=== PATIENT | female | born 1990 | race Caucasian/White ===

== ENCOUNTER 2016-11-15 13:12 | Emergency (ER) | payer MEDICAID ==
[2016-11-15 14:19] LABS: RBC URINE 1 /hpf (0-3); URINE BACTERIA RARE (<OCC); URINE BILIRUBIN NEGATIVE (NEGATIVE); URINE COLOR Yellow (YELLOW); URINE GLUCOSE (UA) NORMAL (Normal); URINE KETONE NEGATIVE (NEGATIVE); URINE LEUKOCYTE ESTERASE TRACE Leu/uL (Negative); URINE PROTEIN 3+ mg/dL (NEGATIVE); URINE UROBILINOGEN NORMAL mg/dL (0.2-1.0); WBC URINE 7 /hpf (0-5)
--- NOTE | 2016-11-15 14:20 | C.PDOC ---
History Of Present Illness 26 y/o female who presents to the ED complaining of nausea, abdominal distension , and 1 episode of vomiting today. LMP was 09/2016 and she states she is late. Patient has not taken home test. She denies fever, dysuria/hematuria , vaginal discharge, diarrhea. PMD: Dr. Piper Time Seen by Provider: 11/15/16 13:44 Chief Complaint (Nursing): Abdominal Pain History Per: Patient History/Exam Limitations: no limitations Onset/Duration Of Symptoms: Days (x 1) Current Symptoms Are (Timing): Still Present Severity: Mild Past Medical History Reviewed: Historical Data, Nursing Documentation, Vital Signs Vital Signs: Last Vital Signs Temp 98.7 F 11/15/16 15:45 Pulse 73 11/15/16 15:45 Resp 16 11/15/16 15:45 BP 148/79 11/15/16 15:45 Pulse Ox 100 11/19/16 13:43 - Medical History PMH: Bipolar Disorder, Paranoia, Schizophrenia Family History: States: No Known Family Hx - Social History Hx Tobacco Use: No Hx Alcohol Use: No Hx Substance Use: No - Immunization History Hx Tetanus Toxoid Vaccination: No Hx Influenza Vaccination: No Hx Pneumococcal Vaccination: No Review Of Systems Except As Marked, All Systems Reviewed And Found Negative. Constitutional: Negative for: Fever Cardiovascular: Negative for: Chest Pain, Palpitations Respiratory: Negative for: Shortness of Breath Gastrointestinal: Positive for: Nausea, Vomiting, Other (Distension). Negative for: Diarrhea Genitourinary: Negative for: Dysuria, Hematuria, Vaginal Discharge Physical Exam - Physical Exam Appears: Well, Non-toxic, No Acute Distress, Other (morbidly obese ) Skin: Normal Color, Warm, Dry Oral Mucosa: Moist Neck: Normal Cardiovascular: Rhythm Regular Respiratory: Normal Breath Sounds, No Rales, No Rhonchi, No Wheezing Gastrointestinal/Abdominal: Normal Exam, Bowel Sounds, Soft, No Tenderness Back: Normal Inspection, No CVA Tenderness Neurological/Psych: Oriented x3 Gait: Steady ED Course And Treatment O2 Sat by Pulse Oximetry: 100 (RA) Pulse Ox Interpretation: Normal Progress Note: 14:01. Initial Plan: UA and Upreg ordered and reviewed. Pending reevaluation and disposition. Reevaluation Time: 15:15 Reassessment Condition: Improved (Patient reassessed, is resting comfortably, in no current pain or distress. Abdomen is soft and nontender on exam. Upreg ( -), UA shows possile UTI. Patient given PO Ciprofloxacin and intructed to follow up with [facility] in 1-2 days. She understands she should return to ED if symptoms worsen.) Disposition Counseled Patient/Family Regarding: Studies Performed, Diagnosis, Need For Followup, Rx Given - Disposition Referrals: [facility] [Outside] Disposition: HOME/ ROUTINE Disposition Time: 15:20 Condition: STABLE Additional Instructions: FOLLOW UP WITH YOUR DOCTOR IN 1-2 DAYS USE ANTIBIOTIC UNTIL FINISHED RETURN TO ER IF SYMPTOMS WORSEN Prescriptions: Ciprofloxacin [Cipro] 1 tab PO BID #14 tab Instructions: Urinary Tract Infection in Women (ED) Forms: [employer] (Zambian) Print Language: NAMIBIAN - POA Present On Arrival: None - Clinical Impression Clinical Impression: UTI (urinary tract infection) - Scribe Statement The provider has reviewed the documentation as recorded by the Scribe Rosemary Greenwood All medical record entries made by the Scribe were at my direction and personally dictated by me. I have reviewed the chart and agree that the record accurately reflects my personal performance of the history, physical exam, medical decision making, and the department course for this patient. I have also personally directed, reviewed, and agree with the discharge instructions and disposition.
[2016-11-15 14:21] LABS: URINE BLOOD TRACE (NEGATIVE)
[2016-11-15 15:45] VITALS: BP 148/79; PULSE 73; RESP 16; TEMP 98.7
[2016-11-19 13:41] VITALS: O2SAT 100
== END 2016-11-15 15:46 | disposition home or self-care (01) ==
LOC: C.ER 13:12
DX: N39.0 Urinary tract infection, site not specified (principal)

== ENCOUNTER 2016-11-30 18:24 | Emergency (ER) | payer MEDICAID ==
[2016-11-30 18:39] VITALS: O2SAT 99
[2016-11-30 19:50] LABS: BASO # 0.1 K/uL (0.0-0.2); BASO % 0.6 % (0.0-2.0); EOS # 0.2 K/uL (0.0-0.7); EOS % 1.3 % (0.0-4.0); HEMATOCRIT 29.8 % (34.0-47.0); LYMPH # 4.3 K/uL (1.0-4.3); LYMPH % 37.8 % (20.0-40.0); MEAN CELL VOLUME 65.7 fL (81.0-99.0); MEAN CORPUSCULAR HEMOGLOBIN 19.7 pg (27.0-31.0); MEAN PLATELET VOLUME 8.5 fL (7.2-11.7); MONO # 0.4 K/uL (0.0-0.8); MONO % 3.4 % (0.0-10.0); RED CELL DISTRIBUTION WIDTH 18.7 % (11.5-14.5); WHITE BLOOD COUNT 11.3 K/uL (4.8-10.8)
[2016-11-30 19:58] LABS: CHLORIDE 105 mmol/L (98-107)
[2016-11-30 19:59] LABS: POTASSIUM 4.1 mmol/L (3.6-5.2); SODIUM 140 mmol/L (132-148)
[2016-11-30 20:01] LABS: ALB/GLOB RATIO 1.2 (1.0-2.1); AST/SGOT 25 U/L (14-36); BILIRUBIN,TOTAL 0.4 mg/dL (0.2-1.3); BLOOD UREA NITROGEN 15 mg/dL (7-17); CARBON DIOXIDE 25 mmol/L (22-30); GFR AFRICAN-AMERICAN > 60; TOTAL PROTEIN 7.3 g/dL (6.3-8.3)
[2016-11-30 20:02] LABS: ALKALINE PHOSPHATASE 60 U/L (38-126); ALT/SGPT 41 U/L (9-52); GLUCOSE,RANDOM 92 mg/dL (65-105)
--- NOTE | 2016-11-30 20:11 | C.PDOC ---
History Of Present Illness 26 y/o female presents to ED with complaints of left upper abdominal pain and multiple daily episode of watery diarrhea since arriving from [facility] x1 month ago. Patient states symptoms are constant everyday and worsen when eating spicy food. Patient denies fever, chills, nausea, vomiting, rash or any other complaints at this time. Time Seen by Provider: 11/30/16 19:29 Chief Complaint (Nursing): Abdominal Pain History Per: Patient History/Exam Limitations: no limitations Onset/Duration Of Symptoms: Days Current Symptoms Are (Timing): Still Present Past Medical History Reviewed: Historical Data, Nursing Documentation, Vital Signs Vital Signs: Last Vital Signs Temp 97.4 F L 11/30/16 18:39 Pulse 20 L 11/30/16 18:39 Resp 18 11/30/16 18:39 BP 141/104 H 11/30/16 18:39 Pulse Ox 99 11/30/16 20:39 - Medical History PMH: Bipolar Disorder, Paranoia, Schizophrenia Surgical History: No Surg Hx Family History: States: No Known Family Hx - Social History Hx Tobacco Use: No Hx Alcohol Use: No Hx Substance Use: No - Immunization History Hx Tetanus Toxoid Vaccination: No Hx Influenza Vaccination: No Hx Pneumococcal Vaccination: No Review Of Systems Constitutional: Negative for: Fever, Chills Gastrointestinal: Positive for: Abdominal Pain, Diarrhea. Negative for: Nausea , Vomiting Genitourinary: Negative for: Dysuria, Frequency Musculoskeletal: Negative for: Back Pain Skin: Negative for: Rash Physical Exam - Physical Exam Appears: Non-toxic, No Acute Distress Skin: Normal Color, Warm, Dry, No Rash Head: Atraumatic Eye(s): bilateral: PERRL, EOMI Nose: No Epistaxis Oral Mucosa: Moist Neck: Normal ROM, Supple Cardiovascular: Rhythm Regular Respiratory: No Decreased Breath Sounds, No Accessory Muscle Use, No Rales, No Rhonchi, No Wheezing Gastrointestinal/Abdominal: Tenderness (LUQ ), No Guarding, No Rebound Neurological/Psych: Oriented x3, Normal Motor, Normal Sensation, Other (no focal deficits ) ED Course And Treatment - Laboratory Results Result Diagrams: 11/30/16 19:55 11/30/16 20:00 O2 Sat by Pulse Oximetry: 99 (RA) Pulse Ox Interpretation: Normal Medical Decision Making Medical Decision Makinpm pt hungry requesting to eat. she appears well in no distress. exam benign. I disc results, plan for f/u, and rtr. Disposition - Disposition Referrals: [facility] at [facility] [Outside] Disposition: HOME/ ROUTINE Disposition Time: 21:07 Condition: GOOD Additional Instructions: Please follow up with your doctor. Return to the ER for any worsening symptoms or for any other concerns. Prescriptions: Famotidine [Heartburn Prevention] 10 mg PO DAILY #14 tablet Famotidine [Pepcid] 20 mg PO DAILY #14 tab Instructions: Diet for Ulcers and Gastritis (GEN) Forms: General Discharge Instructions, [facility] (Setswana) - Clinical Impression Clinical Impression: Abdominal pain - Scribe Statement The provider has reviewed the documentation as recorded by the Scribann Ching All medical record entries made by the Martinaibann were at my direction and personally dictated by me. I have reviewed the chart and agree that the record accurately reflects my personal performance of the history, physical exam, medical decision making, and the department course for this patient. I have also personally directed, reviewed, and agree with the discharge instructions and disposition.
[2016-11-30] MEDS ORDERED: Aluminum Hydroxide/Magnesium Hydroxide Susp (30 mL) PO STA (20:31)
[2016-11-30] MEDS ORDERED: Aluminum Hydroxide/Magnesium Hydroxide Susp (30 mL) ONE (20:40)
[2016-11-30 20:48] LABS: RBC URINE 5 /hpf (0-3); URINE BACTERIA RARE (<OCC); URINE BILIRUBIN NEGATIVE (NEGATIVE); URINE BLOOD NEGATIVE (NEGATIVE); URINE COLOR Yellow (YELLOW); URINE GLUCOSE (UA) NORMAL (Normal); URINE KETONE NEGATIVE (NEGATIVE); URINE LEUKOCYTE ESTERASE 2+ Leu/uL (Negative); URINE PROTEIN 2+ mg/dL (NEGATIVE); URINE UROBILINOGEN NORMAL mg/dL (0.2-1.0); WBC URINE 26 /hpf (0-5)
[2016-11-30 21:22] VITALS: BP 110/74; PULSE 78; RESP 20; TEMP 97.9
== END 2016-11-30 21:21 | disposition home or self-care (01) ==
LOC: C.ER 18:24
DX: R10.12 Left upper quadrant pain (principal)

== ENCOUNTER 2017-11-02 16:36 | Emergency (ER) | payer MEDICAID ==
[2017-11-02] MEDS ORDERED: Sodium Chloride 0.9% 1,000 ML IV ONE (17:08)
[2017-11-02 17:31] LABS: BASO % 0.4 % (0.0-2.0); EOS # 0.1 K/uL (0.0-0.7); EOS % 1.1 % (0.0-4.0); HEMOGLOBIN 8.6 g/dL (11.0-16.0); LYMPH # 3.9 K/uL (1.0-4.3); LYMPH % 32.7 % (20.0-40.0); MEAN CELL VOLUME 62.4 fL (81.0-99.0); MEAN CORPUSCULAR HEMOGLOBIN 19.3 pg (27.0-31.0); MEAN PLATELET VOLUME 8.8 fL (7.2-11.7); MONO # 0.5 K/uL (0.0-0.8); MONO % 4.1 % (0.0-10.0); NEUT # 7.5 K/uL (1.8-7.0); NEUT % 61.7 % (50.0-75.0); NRBC % 0.1 % (0.0-2.0); RBC 4.44 Mil/uL (3.80-5.20); RED CELL DISTRIBUTION WIDTH 20.1 % (11.5-14.5); WHITE BLOOD COUNT 12.1 K/uL (4.8-10.8)
[2017-11-02 17:35] LABS: SQUAMOUS EPITHIAL 2 /hpf (0-5); URINE BILIRUBIN NEGATIVE (NEGATIVE); URINE BLOOD NEGATIVE (NEGATIVE); URINE CLARITY Clear (Clear); URINE COLOR Straw (YELLOW); URINE GLUCOSE (UA) NORMAL (Normal); URINE LEUKOCYTE ESTERASE NEG Leu/uL (Negative); URINE PROTEIN 2+ mg/dL (NEGATIVE); URINE UROBILINOGEN NORMAL mg/dL (0.2-1.0)
[2017-11-02] MEDS ORDERED: Sodium Chloride 0.9% 1,000 ML ONE (17:46)
--- NOTE | 2017-11-02 17:53 | C.PDOC ---
History Of Present Illness 26-year-old female, PMHx includes bipolar disorder and schizoeffective disorder , presents to the emergency department with complaints of right upper quadrant and epigastric abdominal pain radiating to back, associated with belching, which started after eating Maori food yesterday. States symptoms persisted this morning, and worsened in the afternoon, prompting visit. No fever, diarrhea , or any other associated symptoms. Pt states she has not been taking her psych meds because she is trying to get . No other complaints at this time. Time Seen by Provider: 11/02/17 17:03 Chief Complaint (Nursing): Abdominal Pain History Per: Patient History/Exam Limitations: no limitations Past Medical History Reviewed: Historical Data, Nursing Documentation, Vital Signs Vital Signs: Last Vital Signs Temp 98.9 F 11/02/17 18:35 Pulse 72 11/02/17 18:35 Resp 20 11/02/17 18:35 BP 131/83 11/02/17 18:35 Pulse Ox 99 11/02/17 18:35 - Medical History PMH: Bipolar Disorder, Paranoia, Schizophrenia Family History: States: No Known Family Hx - Social History Hx Tobacco Use: No Hx Alcohol Use: No Hx Substance Use: No - Immunization History Hx Tetanus Toxoid Vaccination: No Hx Influenza Vaccination: No Hx Pneumococcal Vaccination: No Review Of Systems Constitutional: Negative for: Fever Cardiovascular: Negative for: Chest Pain Respiratory: Negative for: Shortness of Breath Gastrointestinal: Positive for: Nausea, Abdominal Pain Physical Exam - Physical Exam Appears: Non-toxic, No Acute Distress Skin: Normal Color, Warm, Dry, No Rash Head: Atraumatic, Normacephalic Eye(s): bilateral: Normal Inspection, PERRL, EOMI Nose: Normal Neck: Normal ROM Chest: Symmetrical Cardiovascular: Rhythm Regular, No Murmur Respiratory: Normal Breath Sounds, No Accessory Muscle Use Gastrointestinal/Abdominal: Soft, Tenderness (RUQ, epigastric), No Distention, No Guarding, No Rebound Extremity: Normal ROM, No Deformity Neurological/Psych: Oriented x3, Normal Speech ED Course And Treatment - Laboratory Results Result Diagrams: 11/02/17 17:28 11/02/17 17:28 Lab Interpretation: No Acute Changes O2 Sat by Pulse Oximetry: 98 Pulse Ox Interpretation: Normal (RA) - CT Scan/US Abdominal ultrasound Other Rad Studies (CT/US): Read By Radiologist, Radiology Report Reviewed CT/US Interpretation: Accession No. : [id number]. Patient Name / ID : ISAIAS TAYO / [id number]. Exam Date : 11/02/2017 18:10:56 ( Approved ). Study Comment : Sex / Age : F / 26Y. Creator : Marilu Rosenthal MD. Dictator : Marilu Rosenthal MD. Elementary School Tutor : Keyboard Instrument Tuner : Marilu Rosenthal MD. Approver2 : Report Date : 11/02/2017 18:38:45. My Comment : . Date of service: 11/02/2017. HISTORY: abd pain. COMPARISON: None. TECHNIQUE: Sonographic evaluation of the abdomen. FINDINGS: LIVER: Measures 18.2 cm. Heterogeneous increased echogenicity of the liver parenchyma. No mass. No intrahepatic bile duct dilatation. GALLBLADDER: Unremarkable. No gallstones. COMMON BILE DUCT: Measures 4.6 mm. No stones. No dilatation. PANCREAS: Unremarkable as visualized. No mass. No ductal dilatation. RIGHT KIDNEY: Measures 12.5 x 4.5 x 5.6cm. Normal echogenicity. No calculus, mass, or hydronephrosis. LEFT KIDNEY: Measures 11.7 x 5.5 x 4.9cm. Normal echogenicity. No calculus, mass, or hydronephrosis. SPLEEN: Normal in size and contour. No mass. AORTA: No aneurysmal dilatation. IVC: Unremarkable. OTHER FINDINGS: None. IMPRESSION: Mild hepatomegaly with diffuse increased echogenicity suggestive of hepatic steatosis. No evidence of cholelithiasis or cholecystitis. Reevaluation Time: 19:32 Reassessment Condition: Improved Disposition Counseled Patient/Family Regarding: Studies Performed, Diagnosis, Need For Followup, Rx Given - Disposition Referrals: Malika Oliveira MD [Staff Provider] - Disposition: HOME/ ROUTINE Disposition Time: 19:34 Condition: IMPROVED Prescriptions: Pantoprazole Sodium [Protonix] 40 mg PO DAILY #14 ect Instructions: Acute Abdomen (Belly Pain), Adult (DC) Forms: [facility] (Tamazight) - Clinical Impression Clinical Impression: Abdominal pain - Scribe Statement The provider has reviewed the documentation as recorded by the Scribe (Aixa Shannon) All medical record entries made by the Scribe were at my direction and personally dictated by me. I have reviewed the chart and agree that the record accurately reflects my personal performance of the history, physical exam, medical decision making, and the department course for this patient. I have also personally directed, reviewed, and agree with the discharge instructions and disposition.
[2017-11-02 17:56] LABS: ALB/GLOB RATIO 1.2 (1.0-2.1); ALBUMIN 4.1 g/dL (3.5-5.0); ALT/SGPT 26 U/L (9-52); AST/SGOT 16 U/L (14-36); BLOOD UREA NITROGEN 14 mg/dL (7-17); CALCIUM 9.5 mg/dl (8.6-10.4); GFR AFRICAN-AMERICAN > 60; GFR NON-AFRICAN AMERICAN > 60; LIPASE 67 U/L (23-300)
[2017-11-02 18:14] LABS: HCG,QUALITATIVE URINE NEGATIVE (NEGATIVE)
--- NOTE | 2017-11-02 18:40 | US ---
Date of service: 11/02/2017 HISTORY: abd pain COMPARISON: None. TECHNIQUE: Sonographic evaluation of the abdomen. FINDINGS: LIVER: Measures 18.2 cm. Heterogeneous increased echogenicity of the liver parenchyma. No mass. No intrahepatic bile duct dilatation. GALLBLADDER: Unremarkable. No gallstones. COMMON BILE DUCT: Measures 4.6 mm. No stones. No dilatation. PANCREAS: Unremarkable as visualized. No mass. No ductal dilatation. RIGHT KIDNEY: Measures 12.5 x 4.5 x 5.6cm. Normal echogenicity. No calculus, mass, or hydronephrosis. LEFT KIDNEY: Measures 11.7 x 5.5 x 4.9cm. Normal echogenicity. No calculus, mass, or hydronephrosis. SPLEEN: Normal in size and contour. No mass. AORTA: No aneurysmal dilatation. IVC: Unremarkable. OTHER FINDINGS: None. IMPRESSION: Mild hepatomegaly with diffuse increased echogenicity suggestive of hepatic steatosis. No evidence of cholelithiasis or cholecystitis.
[2017-11-02 18:45] VITALS: BP 131/83; PULSE 72; RESP 20; TEMP 98.9
[2017-11-02 19:34] VITALS: O2SAT 98
== END 2017-11-02 19:44 | disposition home or self-care (01) ==
LOC: C.ER 16:36
DX: R10.9 Unspecified abdominal pain (principal)
CPT/HCPCS: 76700; 80053; 81001; 83690; 84703; 85025; 96361; 96374; 99284; J2405; J7030

== ENCOUNTER 2018-08-13 01:06 | Inpatient (IN) | payer MEDICAID ==
--- NOTE | 2018-08-13 01:47 | C.PDOC ---
History Of Present Illness 27 year old female brought to ED by family for angry outbursts and bizarre behavior that occurred today. Patient has been acting out and threatening family members. Patient has a psychiatric history and been non-compliant with medica tions, as per family. Patient denies homicidal and suicidal ideation. Time Seen by Provider: 08/13/18 01:46 Chief Complaint (Nursing): Psychiatric Evaluation History Per: Patient, Family History/Exam Limitations: no limitations Onset/Duration Of Symptoms: Days (1) Current Symptoms Are (Timing): Still Present Suicide/Self Injury Attempted (Context): None Modifying Factor(s): None Associated Symptoms: Anger, Agitation. denies: Suicidal Thoughts, Suicidal Plan Involuntary Hold By: None Additional History Per: Family Past Medical History Reviewed: Historical Data, Nursing Documentation, Vital Signs Vital Signs: Last Vital Signs Temp 99.3 F 08/13/18 01:22 Pulse 136 H 08/13/18 01:22 Resp 20 08/13/18 01:22 BP 184/111 H 08/13/18 01:22 Pulse Ox 99 08/13/18 01:22 Primary Care Provider: Carlos Arboleda - Medical History PMH: Bipolar Disorder, Paranoia, Schizophrenia Denies: Diabetes, Hepatitis, HIV, HTN, Seizures, Sexually Transmitted Disease Surgical History: No Surg Hx Family History: States: Unknown Family Hx - Social History Hx Tobacco Use: No Hx Alcohol Use: No Hx Substance Use: No - Immunization History Hx Tetanus Toxoid Vaccination: No Hx Influenza Vaccination: No Hx Pneumococcal Vaccination: No Review Of Systems Psych: Negative for: Suicidal ideation, Other (homicidal ideation) Physical Exam - Physical Exam Appears: Non-toxic, No Acute Distress Skin: Normal Color, Warm, Dry Head: Atraumatic, Normacephalic Eye(s): bilateral: Normal Inspection Oral Mucosa: Moist Neck: Trachea Midline, Supple Chest: Symmetrical Cardiovascular: Rhythm Regular Respiratory: No Rales, No Rhonchi, No Wheezing Gastrointestinal/Abdominal: Soft, No Tenderness, No Distention, No Guarding, No Rebound Extremity: Capillary Refill (<2 seconds) Extremity: Bilateral: Normal Color And Temperature Pulses: Left Dorsalis Pedis: Normal, Right Dorsalis Pedis: Normal Neurological/Psych: Oriented x3 Gait: Steady ED Course And Treatment - Laboratory Results Result Diagrams: 08/13/18 02:20 08/13/18 02:20 ECG: Interpreted By Me, Viewed By Me ECG Rhythm: Sinus Rhythm (114), Nonspecific Changes O2 Sat by Pulse Oximetry: 99 (in RA) Pulse Ox Interpretation: Normal - Radiology CXR: Interpreted by Me, Viewed By Me CXR Interpretation: No: Infiltrates, Fracture, Pnemothorax Progress Note: Labs with drug screen and UA ordered for patient. Crisis evaluation ordered for patient. pt is medically cleared for [facility] screener Disposition Counseled Patient/Family Regarding: Studies Performed, Diagnosis - Disposition Disposition Time: 01:46 Condition: FAIR Forms: [employer] (Sami) - Clinical Impression Clinical Impression: Schizo affective schizophrenia - Scribe Statement The provider has reviewed the documentation as recorded by the Scribe (Kiah Dutta) All medical record entries made by the Scribe were at my direction and personally dictated by me. I have reviewed the chart and agree that the record accurately reflects my personal performance of the history, physical exam, medic al decision making, and the department course for this patient. I have also personally directed, reviewed, and agree with the discharge instructions and disposition. Physician Patient Turnover Patient Signed Over To: Donita Mariscal Handoff Comments: pending [facility] screener and dispo
[2018-08-13 02:25] LABS: BASO % 0.3 % (0.0-2.0); EOS # 0.1 K/uL (0.0-0.7); EOS % 0.7 % (0.0-4.0); LYMPH # 3.9 K/uL (1.0-4.3); LYMPH % 38.2 % (20.0-40.0); MEAN CELL VOLUME 66.4 fL (81.0-99.0); MEAN CORPUSCULAR HEMOGLOBIN 20.9 pg (27.0-31.0); MEAN CORPUSCULAR HGB CONC 31.5 g/dL (33.0-37.0); MEAN PLATELET VOLUME 9.6 fL (7.2-11.7); MONO # 0.7 K/uL (0.0-0.8); MONO % 6.4 % (0.0-10.0); NEUT # 5.6 K/uL (1.8-7.0); NEUT % 54.4 % (50.0-75.0); RBC 4.78 Mil/uL (3.80-5.20); RED CELL DISTRIBUTION WIDTH 19.9 % (11.5-14.5); WHITE BLOOD COUNT 10.3 K/uL (4.8-10.8)
[2018-08-13 02:42] LABS: ALB/GLOB RATIO 1.3 (1.0-2.1); ALBUMIN 4.7 g/dL (3.5-5.0); ALT/SGPT 19 U/L (9-52); AST/SGOT 25 U/L (14-36); BLOOD UREA NITROGEN 16 mg/dL (7-17); CALCIUM 9.3 mg/dl (8.6-10.4); GFR NON-AFRICAN AMERICAN > 60
[2018-08-13 03:15] LABS: HCG,QUALITATIVE URINE NEGATIVE (NEGATIVE)
[2018-08-13 03:26] LABS: BARBITURATES, UR NEGATIVE (NEGATIVE); BENZODIAZEPINES, UR NEGATIVE (NEGATIVE); OPIATES, UR NEGATIVE (NEGATIVE); PHENCYCLIDINE, UR NEGATIVE (NEGATIVE)
[2018-08-13 03:28] LABS: SQUAMOUS EPITHIAL 19 /hpf (0-5); URINE BILIRUBIN NEGATIVE (NEGATIVE); URINE BLOOD NEGATIVE (NEGATIVE); URINE CLARITY Hazy (Clear); URINE COLOR Yellow (YELLOW); URINE GLUCOSE (UA) NORMAL (Normal); URINE LEUKOCYTE ESTERASE TRACE Leu/uL (Negative); URINE PROTEIN 2+ mg/dL (NEGATIVE)
[2018-08-13] MEDS ORDERED: DiphenhydrAMINE 50 mg/ml Inj ONE (03:47)
--- NOTE | 2018-08-13 17:16 | RAD ---
Date of service: 08/13/2018 PROCEDURE: CHEST RADIOGRAPH, 1 VIEW HISTORY: psych COMPARISON: 07/25/2014 FINDINGS: LUNGS: Clear. PLEURA: No pneumothorax or pleural fluid seen. CARDIOVASCULAR: No aortic atherosclerotic calcification present. Normal. OSSEOUS STRUCTURES: No significant abnormalities. VISUALIZED UPPER ABDOMEN: Normal. OTHER FINDINGS: None. IMPRESSION: No active disease.
--- NOTE | 2018-08-14 22:28 | PCM.BM ---
<Laina Tayolr - Last Filed: 08/14/18 22:26> Treatment Plan Problems - Problems identified on initial assessmt Medication Nonadherence Date Initiated: 08/14/18 Time Initiated: 17:15 Assessment reference: NA Status: Active Ineffective family coping Date Initiated: 08/14/18 Time Initiated: 17:15 Assessment reference: NA Status: Active Treatment assets and liabiliti Patient Assests: ADL independent, negotiates basic needs Patient Liabilities: poor support system, relationship conflicts - Milieu Protocol Maintain good personal hygiene: daily Encourage regular showers, daily Remind patient to perform daily oral care, every shift Assist patient to perform ADL's Conduct patient checks and document Observation sheet: Q15 minutes Maintain personal safety: every shift Educate patient to report safety concerns to staff, every shift Monitor environment for contraband/sharps Medication safety: Monitor for expected outcome, potential side effects: every shift, Assess barriers to learning: every shift, Assess readiness for medication education: every shift <Brock Heath - Last Filed: 08/16/18 11:08> - Diagnosis (1) Schizoaffective disorder Status: Acute Interventions: 08/16/18 11:09 * Assess/adjust medications daily and /or as needed * See patient on an individual basis 7x/week to assess status of hallucinations * Discuss risks, benefits, side effects and alternatives of medications * <Edilia Pack - Last Filed: 08/16/18 14:19> Family Contact Family involvement: Family/SO is involved Family contact: Patient agrees to contact, Family has been contacted by patient - Goals for Treatment Patient goals for treatment: "I want to go back to [facility]." Discharge/Continuing Care - Education Needs Education Needs: Patient Medication, Patient Diagnosis/Disease Process, Patient Coping Skills, Patient Placement options, Patient Community resources - Discharge Discharge Criteria: Free of Suicidal thoughts, Normal sleep pattern, Ability to care for self, Reduction of target symptoms Discharge to:: Home, With Family - Treatment Team Participation Discussed with Family/SO: No Was Patient/Family/SO present at Treatment Team Meeting: Yes
[2018-08-15 06:54] VITALS: O2SAT 98
--- NOTE | 2018-08-15 11:10 | PCM.PSYCH ---
Initial Psychiatric Evaluation - Initial Psychiatric Evaluation Type of Admission: Voluntary Legal Status: Capacity Chief Complaint (in patient's own words): I am feeling okay. History of Present Illness and Precipitating Events: Patient is a 37 years old female, who was escorted to the [facility] ED by the family because of a disorganized and internally preoccupied behavior. As per the family patient has a long history of schizoaffective disorder. She has history of multiple inpatient psychiatric hospitalizations. She was recently discharged from psychiatric hospital last year. As per the family she follows up with Dr. Arboleda at the [facility]. She stopped taking the medication became increasingly disorganized. He says she became increasingly irritable and agitated so she was brought to the hospital. She remained a poor historian. She was superficially cooperative but guarded about the details. She appeared very paranoid and delusional. As per staff she remained internally preoccupied and was responding to internal stimuli since yesterday. She reports of hearing voices and seeing things. As per staff since last night she is talking to herself, singing loudly in the room and pacing back and forth in the hallways. However she denies any suicidal ideation or homicidal ideation. She denies any drinking or any substance abuse. Past medical history None reported Current Medications: Active Medications Generic Name Dose Route Start Last Admin Trade Name Freq PRN Reason Stop Dose Admin Benztropine Mesylate 0.5 mg 08/14/18 22:00 08/14/18 21:16 Cogentin PO 0.5 mg HS SAUL Administration Haloperidol 2 mg 08/14/18 22:00 08/14/18 21:52 Haldol PO 2 mg HS SAUL Administration Hydroxyzine HCl 25 mg 08/14/18 19:15 Atarax PO Q6H PRN Anxiety [place] Carbonate 300 mg 08/14/18 22:00 08/14/18 21:20 [place] Carbonate 300mg PO 300 mg HS SAUL Administration Lorazepam 2 mg 08/14/18 15:35 08/15/18 01:17 Ativan PO 2 mg Q6 PRN Administration Other Pneumococcal Polyvalent Vaccine 0.5 ml 08/17/18 10:00 Pneumovax 23 Vaccine IM 08/17/18 10:01 .ONCE ONE Trazodone HCl 50 mg 08/14/18 22:00 08/14/18 21:15 Desyrel PO 50 mg HS SAUL Administration Past Psychiatric History - Past Psychiatric History Previous Treatment History: Inpatient Pertinent Medical Hx (Current Medical&Sleep Prob, Allergies): Allergies Allergy/AdvReac Type Severity Reaction Status Date / Time No Known Allergies Allergy Verified 08/13/18 01:33 Benztropine Mesylate 0.5 mg PO HS 08/13/18 Haloperidol [Haldol] 2 mg PO HS 08/13/18 [place] Carbonate [[place] Carbonate 300MG] 1 cap PO HS 08/13/18 Review of Systems - Review of Systems All systems: reviewed and no additional remarkable complaints except - Psychiatric Psychiatric: Anxiety, Irritability, Suicidal Ideation DSM 5 DX - DSM 5 DSM 5 Diagnosis: Schizoaffective disorder bipolar type - Recommended/Plan of Treatment Treatment Recommendations and Plan of Treatment: Schizoaffective disorder bipolar type CBT Psychoeducation supportive therapy Trazodone for insomnia Haldol for psychosis Cogentin for EPS Hydroxyzine for anxiety [place] for mood Klonopin for severe anxiety
--- NOTE | 2018-08-16 13:04 | PCM.PYCHPN ---
Psychiatric Progress Note - Psychiatric Progress Note Patient seen today, length of contact: 15 min Patient Chief Complaint: I am feeling okay. Problems Identified/Issues Discussed: Patient was seen in neurology, chart reviewed and discussed the staff. Patient remained disorganized and internally preoccupied. She is singing and dancing in the hallways and appears hypomanic. As per staff, she is talking to herself and responding to internal stimuli. She has been pacing back and forth in the hallways all day yesterday. However she has starting medications but denies any side effects. Supportive therapy was given Medication Change: Yes Medical Record Reviewed: Yes Mental Status Examination - Cognitive Function Orientation: Person, Place, Situation, Time Memory: Intact Attention: Poor Concentration: Poor Association: Loose Fund of Knowledge: Poor - Mood Mood: Anxious - Affect Affect: Constricted - Speech Speech: Soft - Formal Thought Process Formal Thought Process: Hallucinations, Delusions, Paranoia, Loosening of associations - Suicidal Ideation Suicidal Ideation: No - Homicidal Ideation Homicidal Ideation: No Goal/Treatment Plan - Goal/Treatment Plan Need for Continued Stay: Remain at risks for inpatient hospitalization Progress Toward Problem(s) and Goals/Treatment Plan: Schizoaffective disorder bipolar type CBT Psychoeducation supportive therapy Trazodone for insomnia Haldol for psychosis Cogentin for EPS Hydroxyzine for anxiety [place] for mood Klonopin for severe anxiety
[2018-08-17] MEDS ORDERED: Pneumococcal 23-Valent Vaccine IM ONE (10:00)
[2018-08-20] MEDS ORDERED: Aluminum Hydroxide/Magnesium Hydroxide Susp (30 mL) PO PRN (12:46)
[2018-08-21 06:21] VITALS: BP 128/86; PULSE 85; RESP 20; TEMP 97.9
--- NOTE | 2018-08-21 10:25 | PCM.PYCHDC ---
Mental Status Examination - Mental Status Examination Orientation: Person, Place, Situation, Time Memory: Intact Mood: Neutral Affect: Constricted Speech: Soft Attention: WNL Concentration: WNL Association: WNL Fund of Knowledge: WNL Formal Thought Process: No Impairment Description of patient's judgement and insight: good, fair Psychotic Thoughts and Behaviors: denies any AVH Suicidal Ideation: No Current Homicidal Ideation?: No Discharge Summary - Discharge Note Reason for Hospitalization: Patient is a 37 years old female, who was escorted to the [facility] ED by the family because of a disorganized and internally preoccupied behavior. As per the family patient has a long history of schizoaffective disorder. She has history of multiple inpatient psychiatric hospitalizations. She was recently discharged from psychiatric hospital last year. As per the family she follows up with Dr. Arboleda at the [facility]. She stopped taking the medication became increasingly disorganized. He says she became increasingly irritable and agitated so she was brought to the hospital. She remained a poor historian. She was superficially cooperative but guarded about the details. She appeared very paranoid and delusional. As per staff she remained internally preoccupied and was responding to internal stimuli since yesterday. She reports of hearing voices and seeing things. As per staff since last night she is talking to herself, singing loudly in the room and pacing back and forth in the hallways. However she denies any suicidal ideation or homicidal ideation. She denies any drinking or any substance abuse. Consultations:: List each consultation separately and include: 1. Reason for request. 2. Findings. 3. Follow-up Summary of Hospital Course include:: 1. Description of specific treatment plan utilized for patients during their course of treatmen. 2. Summarize the time- course for resolution of acute symptoms and/or regressed behaviors. 3. Describe issues identified and worked on during hospitalization. 4. Describe medication utilized. 5. Describe medical problems identified and treated. 6. Reassessment of suicide risk Summary of Hospital Course: Patient is a 37 years old female, who was escorted to the [facility] ED by the family because of a disorganized and internally preoccupied behavior. As per the family patient has a long history of schizoaffective disorder. She has history of multiple inpatient psychiatric hospitalizations. She was recently discharged from psychiatric hospital last year. As per the family she follows up with Dr. Arboleda at the [facility]. She stopped taking the medication became increasingly disorganized. He says she became increasingly irritable and agitated so she was brought to the hospital. She remained a poor historian. She was superficially cooperative but guarded about the details. She appeared very paranoid and delusional. As per staff she remained internally preoccupied and was responding to internal stimuli since yesterday. She reports of hearing voices and seeing things. As per staff since last night she is talking to herself, singing loudly in the room and pacing back and forth in the hallways. However she denies any suicidal ideation or homicidal ideation. She denies any drinking or any substance abuse. Past medical history None reported - Diagnosis (1) Schizoaffective disorder Current Visit: Yes Status: Acute - Final Diagnosis (DSM 5) Condition upon Discharge: FAIR DSM 5: Schizoaffective disorder bipolar type Disposition: HOME/ ROUTINE Follow-up Treatment Plan: Schizoaffective disorder bipolar type CBT Psychoeducation supportive therapy Trazodone for insomnia Haldol for psychosis Cogentin for EPS Hydroxyzine for anxiety [place] for mood Klonopin for severe anxiety Prescriptions/Medication Reconciliation: Benztropine [Cogentin] 1 mg PO BID #30 tab Haloperidol [Haldol] 10 mg PO TID #90 tab [place] Carbonate [[place] Carbonate 300MG] 600 mg PO BID #60 cap traZODone [Desyrel] 50 mg PO HS #30 tab - Smoking Cessation Smoking Cessation Medication prescribed: No - Antipsychotic Medications Pt discharged on 2 or more routine antipsychotic medications: No
== END 2018-08-21 12:25 | disposition home or self-care (01) | DRG 430 ==
LOC: C.ER 01:06 → C.5E 08-14 16:40
PROVIDERS: ADMIT Psychiatry & Neurology Psychiatry; ATTEND Psychiatry & Neurology Psychiatry
PROC: GZ3ZZZZ Medication Management (ICD-10-PCS; principal; 2018-08-14)
PROC: GZHZZZZ Group Psychotherapy (ICD-10-PCS; 2018-08-14)
PROC: GZ56ZZZ Individual Psychotherapy, Supportive (ICD-10-PCS; 2018-08-14)
DX: F25.0 Schizoaffective disorder, bipolar type (principal); F41.9 Anxiety disorder, unspecified; G47.00 Insomnia, unspecified; Z91.14 Patient's other noncompliance with medication regimen